=== PATIENT | female | born 1950 | race Caucasian/White ===

== ENCOUNTER → 2020-09-26 | Outpatient (CLI) | payer MEDICARE | LOC: RAD 09:27 | PROVIDERS: ATTEND Internal Medicine | DX: R01.1 Cardiac murmur, unspecified (principal) | CPT/HCPCS: 93306 ==

== ENCOUNTER → 2021-11-23 | Outpatient (CLI) | payer MEDICARE | LOC: US 09:45 | PROVIDERS: ATTEND Nurse Practitioner Gerontology | DX: R74.8 Abnormal levels of other serum enzymes (principal) | CPT/HCPCS: 76705 ==

== ENCOUNTER → 2022-05-04 | Outpatient (CLI) | payer MEDICARE | LOC: RAD 10:38 | PROVIDERS: ATTEND Family Medicine | DX: R07.81 Pleurodynia (principal); M54.6 Pain in thoracic spine; M25.561 Pain in right knee; W19.XXXA Unspecified fall, initial encounter | CPT/HCPCS: 71046; 72072 ==

== ENCOUNTER 2022-05-27 10:59 | Emergency (ER) | payer MEDICARE ==
[~2022-05-27] VITALS: Ht 157.5 cm; Wt 66.7 kg
[2022-05-27] MEDS ORDERED: HYDROCODONE/APAP 5MG-325MG TAB PO ONE (11:45)
== END 2022-05-27 13:16 | disposition home or self-care (01) ==
LOC: ER 11:18
DX: S22.43XA Multiple fractures of ribs, bilateral, initial encounter for closed fracture (principal); J90 Pleural effusion, not elsewhere classified; W01.0XXA Fall on same level from slipping, tripping and stumbling without subsequent striking against object, initial encounter; Y93.01 Activity, walking, marching and hiking; Y92.89 Other specified places as the place of occurrence of the external cause; I10 Essential (primary) hypertension; J44.9 Chronic obstructive pulmonary disease, unspecified; Z85.3 Personal history of malignant neoplasm of breast; F17.210 Nicotine dependence, cigarettes, uncomplicated
CPT/HCPCS: 71250; 94799; 99283